=== PATIENT | female | born 1940 | race African-American/Black ===

== ENCOUNTER 2019-09-28 16:08 | Inpatient (IN) | payer MEDICARE, MEDICAID ==
[~2019-09-28] VITALS: Ht 152.4 cm; Wt 50.3 kg
[~2019-09-28 16:08] MED LIST: ALBUTEROL2.5 MG/3 M INH; ATIVAN2 MG ORAL; CHANTIX1 MG PO; COLACE250 MG ORAL; DIPHENHYDRAMINE25 MG ORAL; HYDROCHLOROTHIA25 MG PO; IBUPROFEN600 MG PO; IMDUR30 MG ORAL; IMDUR60 MG PO; INDOCIN25 MG/5 ML PO; IPRAT-ALBUT 0.5-3 ML IH; KEFLEX500 MG ORAL; LORAZEPAM2 MG/1 M4 ORAL; MEGACE ORA400 MG/10 ORAL; NEURONTIN300 MG ORAL; NEURONTIN300 MG PO; NORVASC5 MG PO; PATANOL1 DROP BOTH EYES; PRILOSEC OTC20 MG ORAL; PRILOSEC20 MG PO; PROCHLORPERAZINE5 MG ORAL; PROCHLORPERAZINE5 MG PO; SIMVASTATIN40 MG PO; SOMA350 MG PO; TAGAMET400 MG GT; TENORMIN50 MG PO; TRAMADOL HCL50 MG ORAL; VICODIN ORAL; ZANAFLEX4 M1 ORAL; ZAROXOLYN5 MG ORAL; ZOLOFT25 MG ORAL; ZOLOFT50 MG ORAL
[2019-09-28 16:10] VITALS: BP 102/60
--- NOTE | 2019-09-28 16:10 | NUR ---
ED Nurse Note: Patient arrived to ED by ambulance stating that she fell off of the 3rd step at her home due to thinking she was at the ground level. Patient states she fell and hit her face, head, and bilateral knees. Patient has visible, small lacerations on right upper and lower lips. Also, states she has a headache rating 10/10. Patient does have history of severe migraines and had MRI of head for migraines at [facility] this AM, prior to the fall. Patient AxO x 4, skin intact. Patient connected to the monitoring analyst, bed in lowest position. Blood sent to lab.
--- NOTE | 2019-09-28 16:46 | Emergency Room Report ---
History of Present Illness General Chief Complaint: Multiple Trauma/Fall Source: Patient, Medical Record Present Illness HPI Disclaimer: Please note that this report is being documented using DRAGON technology. This can lead to erroneous entry secondary to incorrect interpretation by the dictating instrument. HPI: 78-year-old female presents for evaluation after a fall. The patient was going down the stairs and missed the last 3 falling forwards onto her knees, right hip and hitting her head and face on the ground. There is no loss of consciousness. She denies any changes in her vision but is complaining of diffuse back pain, bilateral knee pain, right hip pain. Denies changes in her vision, blurred vision but notes some midface pain and swelling of the upper lip. She believes she bit through her upper lip. Bleeding was controlled at home by applying pressure. Does not recall last tetanus. She has a history of chronic back pain for which she takes Finley. Otherwise in her usual state of health and denies any new weakness, fatigue, fever, chills, chest pain, shortness of breath, abdominal pain, nausea, vomiting. PMH: Hypertension, hyperlipidemia, chronic back pain PSH: Reviewed Allergies: None listed Social Hx: Denies Allergies: Coded Allergies: No Known Allergies (Verified , 06/06/11) Patient History Last Menstrual Period: N/A Now: No Nursing Documentation-PMH Hx Cardiac Problems: Yes - EMPHYSEMA, Hx Hypertension: Yes Hx Asthma: No Hx COPD: Yes Hx Diabetes: No Hx Cancer: No Hx Gastrointestinal Problems: Yes Hx Dialysis: No Hx Neurological Problems: Yes - chronic back problems Hx Cerebrovascular Accident: No Hx Transient Ischemic Attacks: No Hx Dementia: No Hx Alzheimer's Disease: No Hx Parkinson's Disease: No Hx Encephalitis: No Hx Seizures: No Hx Epilepsy: No Hx Multiple Sclerosis: No Hx Cerebral Palsy: No Hx Amyotrophic Lat Sclerosis: No Hx Guillian-Vale Syndrome: No Hx Paralysis: No Hx Peripheral Neuropathy: No Hx Spinal Cord Injury: No Hx Head Trauma: No Hx Traumatic Brain Injury: No Hx Memory Loss: No Hx Concentration Difficulty: No Hx Speech Problem: No Hx Vertigo: No Hx Dizziness: No Hx Syncope: No Hx Headaches: No Hx Aphasia: No Hx Dysphasia: No Hx Numbness: No Hx Weakness: Yes - BILATERAL LOWER EXTRMITIES Hx Fatigue: No Hx Neurologic Surgery: No Hx Brain Shunt: No Review of Systems All Other Systems: negative except mentioned in HPI Physical Exam Vital Signs Date Time Temp Pulse Resp B/P (MAP) Pulse Ox O2 Delivery O2 Flow Rate FiO2 09/28/19 16:04 98.1 88 15 102/60 (74) 97 Room Air General: Awake and alert, no acute distress HEENT: Normocephalic, atraumatic. There are no scalp or face hematomas, lacerations or abrasions. . EOMI. PERRLA. No septal hematoma. Tenderness to palpation and edema over the upper lip. There is a 3 cm linear and very superficial laceration in the or mucosally of the upper lip. No midface instability. No malocclusion Neck: Supple, trachea midline. Arrives without cervical collar Chest Wall: No tenderness, no deformity, no crepitus CV: RRR. S1 and S2 normal. No murmur appreciated Resp: Normal work of breathing. No cough, wheezing or crackles appreciated Abd: Soft, nontender, nondistended Skin: Intact. No abrasions, laceration or rash over the exposed skin MSK: Normal tone and bulk. No obvious deformity. Moving all extremities. Tenderness palpation without deformity over the right hip. Range of motion is preserved. Bilateral pain over the patellas without effusion, edema, deformity. Patellas are in anatomic position. Able to flex and extend the knees. Neuro: Awake and alert. Mentating appropriately. Sensation is intact to light touch over the dermatomes of the upper and lower extremities Spine: There is tenderness in the midline without step-off or deformity in the cervical, thoracic and lumbosacral spine. Procedures Critical Care Time Critical Care Time Total critical care time: Approximately 31 minutes Due to a high probability of clinically significant, life threatening deterioration, the patient required the highest level of preparedness to intervene emergently and I personally spent this critical care time directly and personally managing the patient. This critical care time included obtaining a history, examining the patient, pulse oximetry, ordering and reviewing studies , ordering treatments, evaluating response to treatment and updating management plan as needed, frequent reassessment and discussion with other providers as well as arranging for ultimate disposition. This critical to care time was performed to assess and manage the high probability of life-threatening deterioration that could result in multiorgan failure. This critical care time is separate from the separately billable procedures and treating other patients. Medical Decision Making Diagnostic Impression: Primary Impression: Laceration of oral cavity Additional Impressions: Fall (on) (from) other stairs and steps, initial encounter Hypokalemia ER Course 78-year-old female presents for evaluation after a fall. She is not on anticoagulants but did suffer a head injury without loss of consciousness and appears to have a laceration in the oral mucosa. Will update tetanus, she will require CT scan of the head, face, cervical, thoracic and lumbosacral spine as well as x-rays of the hip and pelvis and bilateral knees. Will check screening labs as well and update tetanus. She is mentating appropriately and has no focal findings on exam. Laboratory Tests Test 09/28/19 16:55 White Blood Count 5.8 K/UL (4.8-10.8) Red Blood Count 4.07 M/UL (4.20-5.40) L Hemoglobin 12.9 G/DL (12.0-16.0) Hematocrit 36.3 % (37.0-47.0) L Mean Corpuscular Volume 89 FL (80-99) Mean Corpuscular Hemoglobin 31.6 PG (27.0-31.0) H Mean Corpuscular Hemoglobin Concent 35.4 G/DL (32.0-36.0) Red Cell Distribution Width 12.6 % (11.6-14.8) Platelet Count 229 K/UL (150-450) Mean Platelet Volume 6.0 FL (6.5-10.1) L Neutrophils (%) (Auto) 42.9 % (45.0-75.0) L Lymphocytes (%) (Auto) 37.1 % (20.0-45.0) Monocytes (%) (Auto) 14.4 % (1.0-10.0) H Eosinophils (%) (Auto) 3.8 % (0.0-3.0) H Basophils (%) (Auto) 1.8 % (0.0-2.0) Prothrombin Time 10.1 SEC (9.30-11.50) Prothrombin Time INR 0.9 (0.9-1.1) Sodium Level 133 MMOL/L (136-145) L Potassium Level 2.2 MMOL/L (3.5-5.1) *L Chloride Level 97 MMOL/L (98-107) L Carbon Dioxide Level 33 MMOL/L (21-32) H Anion Gap 5 mmol/L (5-15) Blood Urea Nitrogen 19 mg/dL (7-18) H Creatinine 1.1 MG/DL (0.55-1.30) Estimate Glomerular Filtration Rate mL/min (>60) Glucose Level 85 MG/DL (74-106) Calcium Level 8.9 MG/DL (8.5-10.1) EKG Diagnostic Results EKG Time: 18:02 Rate: normal Rhythm: NSR ST Segments: no acute changes Other Impression Sinus rhythm, normal axis, first-degree AV block with a OH interval [address] segment changes. Rhythm Strip Diag. Results Rhythm Strip Time: 18:02 EP Interpretation: yes Rate: 70s Rhythm: NSR, no PVC's, no ectopy Other X-Ray Diagnostic Results Other X-Ray Diagnostic Results #1: X-Ray ordered: Right hip and pelvis # of Views/Limited Vs Complete: Complete Indication: Pain EP Interpretation: Yes Interpretation: no dislocation, no soft tissue swelling, no fractures Impression: No acute disease Electronically Signed by: Electronically signed by Dr. Ras Smiley Other X-Ray Diagnostic Results #2: X-Ray ordered: Right knee # of Views/Limited Vs Complete: Complete Indication: Pain EP Interpretation: Yes Interpretation: no dislocation, no soft tissue swelling, no fractures Impression: No acute disease Electronically Signed by: Electronically signed by Dr. Ras Smiley Other X-Ray Diagnostic Results #3: X-Ray ordered: Left knee # of Views/Limited Vs Complete: Complete Indication: Pain EP Interpretation: Yes Interpretation: no dislocation, no soft tissue swelling, no fractures Impression: No acute disease Electronically Signed by: Electronically signed by Dr. Ras Smiley CT/MRI/US Diagnostic Results CT/MRI/US Diagnostic Results : Impression Final Report EXAM: CT Head Without Intravenous Contrast CLINICAL HISTORY: Injury TECHNIQUE: Axial computed tomography images of the head/brain without intravenous contrast. CTDI is 60 mGy and DLP is 1274.1 mGy-cm. One or more of the following dose reduction techniques were used: automated exposure control, adjustment of the mA and/or kV according to patient size, use of iterative reconstruction technique. COMPARISON: 10/11/12 FINDINGS: Brain: No acute intracranial hemorrhage, large hypodensity, or significant mass effect. Nonspecific areas of hypoattenuation in the periventricular white matter likely represent the sequela of chronic small vessel ischemic disease. Ventricles: Ventricular and sulcal prominence commensurate with the patient's age. Bones/joints: No acute abnormality. Soft tissues: No significant abnormality. Sinuses: No significant abnormality. Mastoid air cells: No significant abnormality. IMPRESSION: No acute intracranial hemorrhage or calvarial fracture. Radiologist: Elvia Parr MD Electronically Signed: 09/28/19 17:23 Study ready at 17:19 and initial results transmitted at 17:23 Final Report EXAM: CT Maxillofacial Without Intravenous Contrast CLINICAL HISTORY: INJ TECHNIQUE: Axial computed tomography images of the face without intravenous contrast. CTDI is 25.1 mGy and DLP is 500 mGy-cm. One or more of the following dose reduction techniques were used: automated exposure control, adjustment of the mA and/or kV according to patient size, use of iterative reconstruction technique. COMPARISON: 08/29/2013 FINDINGS: Artifacts: Motion. Bones/joints: Stable subcentimeter sclerotic lesion in the right ethmoid sinuses , likely an osteoma. Soft tissues: No significant abnormality. Orbits: No significant abnormality. Sinuses: Mild mucosal thickening in the paranasal sinuses. No air-fluid levels. Dental: Edentulous. IMPRESSION: No acute facial fractures. Radiologist: Elvia Parr MD Electronically Signed: 09/28/19 17:26 Study ready at 17:19 and initial results transmitted at 17:26 Final Report EXAM: CT Cervical Spine Without Intravenous Contrast CLINICAL HISTORY: Injury TECHNIQUE: Axial computed tomography images of the cervical spine without intravenous contrast. CTDI is 4.4 mGy and DLP is 128 mGy-cm. One or more of the following dose reduction techniques were used: automated exposure control, adjustment of the mA and/or kV according to patient size, use of iterative reconstruction technique. COMPARISON: No relevant prior studies available. FINDINGS: Vertebrae: No acute fracture or malalignment. Straightening of the normal cervical lordosis. Discs/spinal canal/neural foramina: Disc height loss, osteophytes, uncovertebral spurs, and facet arthropathy. Multilevel foraminal narrowing. No significant osseous spinal stenosis. Soft tissues: No significant abnormality. IMPRESSION: No acute fracture or malalignment. Radiologist: Elvia Parr MD Electronically Signed: 09/28/19 18:04 Study ready at 18:03 and initial results transmitted at 18:04 Final Report EXAM: CT Thoracic Spine Without Intravenous Contrast CLINICAL HISTORY: Injury TECHNIQUE: Axial computed tomography images of the thoracic spine without intravenous contrast. CTDI is 18.1 mGy and DLP is 721.9 mGy-cm. One or more of the following dose reduction techniques were used: automated exposure control, adjustment of the mA and/or kV according to patient size, use of iterative reconstruction technique. COMPARISON: No relevant prior studies available. FINDINGS: Vertebrae: No acute fracture or malalignment. Chronic compression of the superior endplate of L1. Discs/spinal canal/neural foramina: Mild degenerative changes. No significant osseous spinal stenosis. Soft tissues: No significant abnormality. Vasculature: Aortic atherosclerosis. Lungs: Mild bilateral dependent densities are favored to represent atelectasis. IMPRESSION: No acute fracture or malalignment. Radiologist: Elvia Parr MD Electronically Signed: 09/28/19 17:50 Study ready at 17:26 and initial results transmitted at 17:50 Final Report EXAM: CT Lumbar Spine Without Intravenous Contrast CLINICAL HISTORY: INJ TECHNIQUE: Axial computed tomography images of the lumbar spine without intravenous contrast. CTDI is 16.7 mGy and DLP is 551.6 mGy-cm. One or more of the following dose reduction techniques were used: automated exposure control, adjustment of the mA and/or kV according to patient size, use of iterative reconstruction technique. COMPARISON: 04/07/2014 FINDINGS: Vertebrae: No acute fracture or malalignment. Chronic compression of the superior endplate of L1. Bilateral L5 pars defects. Discs/spinal canal/neural foramina: Degenerative changes worst at L2-L3 and L5- S1. No significant osseous spinal stenosis. Soft tissues: No significant abnormality. Vasculature: Aortic atherosclerosis. Gallbladder and bile ducts: Gallbladder is absent. Kidneys and ureters: Small hypoattenuating left renal lesions, likely cysts. Stomach and bowel: Postsurgical changes are present in the bowel in the left pelvis. IMPRESSION: No acute fracture or malalignment. Radiologist: Elvia Parr MD Electronically Signed: 09/28/19 18:10 Study ready at 17:52 and initial results transmitted at 18:10 Reevaluation Time: 18:28 Last Vital Signs Date Time Temp Pulse Resp B/P (MAP) Pulse Ox O2 Delivery O2 Flow Rate FiO2 09/28/19 16:10 98.1 78 15 102/60 97 Room Air Reevaluation Impression No evidence of acute fracture on CT scans of the head, face, cervical, thoracic or lumbosacral spine. X-rays do not appear traumatic either no obvious dislocation or fracture. Labs show a critically low potassium of 2.2 with normal renal function. The patient will have IV and oral potassium repletion started on IV fluids. She will require admission for further electrolyte repletion. She will be admitted to panel physician on telemetry. Disposition: ADMITTED INPATIENT Condition: Serious Ras Smiley MD Sep 28, 2019 16:45
[2019-09-28 17:18] LABS: ANION GAP 5 mmol/L (5-15); BLOOD UREA NITROGEN 19 mg/dL (7-18); CALCIUM 8.9 MG/DL (8.5-10.1); CARBON DIOXIDE 33 MMOL/L (21-32); CHLORIDE 97 MMOL/L (98-107); CREATININE 1.1 MG/DL (0.55-1.30); SODIUM 133 MMOL/L (136-145)
[2019-09-28 17:22] LABS: BASOPHILS % (AUTO) 1.8 % (0.0-2.0); EOSINOPHILS % (AUTO) 3.8 % (0.0-3.0); HEMATOCRIT 36.3 % (37.0-47.0); HEMOGLOBIN 12.9 G/DL (12.0-16.0); LYMPHOCYTES % (AUTO) 37.1 % (20.0-45.0); MEAN CORPUSCULAR VOLUME 89 FL (80-99); MONOCYTES % (AUTO) 14.4 % (1.0-10.0); NEUTROPHILS % (AUTO) 42.9 % (45.0-75.0); PLATELET COUNT 229 K/UL (150-450); RED BLOOD COUNT 4.07 M/UL (4.20-5.40); RED CELL DISTRIBUTION WIDTH 12.6 % (11.6-14.8); WHITE BLOOD COUNT 5.8 K/UL (4.8-10.8)
--- NOTE | 2019-09-28 17:23 | Diagnostic Imaging Report ---
EXAM: CT Head Without Intravenous Contrast CLINICAL HISTORY: Injury TECHNIQUE: Axial computed tomography images of the head brain without intravenous contrast. CTDI is 60 mGy and DLP is 1274.1 mGy-cm. One or more of the following dose reduction techniques were used: automated exposure control, adjustment of the mA and or kV according to patient size, use of iterative reconstruction technique. COMPARISON: 10 11 12 FINDINGS: Brain: No acute intracranial hemorrhage, large hypodensity, or significant mass effect. Nonspecific areas of hypoattenuation in the periventricular white matter likely represent the sequela of chronic small vessel ischemic disease. Ventricles: Ventricular and sulcal prominence commensurate with the patient's age. Bones joints: No acute abnormality. Soft tissues: No significant abnormality. Sinuses: No significant abnormality. Mastoid air cells: No significant abnormality. IMPRESSION: No acute intracranial hemorrhage or calvarial fracture.
[2019-09-28 17:24] LABS: POTASSIUM 2.2 MMOL/L (3.5-5.1)
--- NOTE | 2019-09-28 17:27 | Diagnostic Imaging Report ---
EXAM: CT Maxillofacial Without Intravenous Contrast CLINICAL HISTORY: INJ TECHNIQUE: Axial computed tomography images of the face without intravenous contrast. CTDI is 25.1 mGy and DLP is 500 mGy-cm. One or more of the following dose reduction techniques were used: automated exposure control, adjustment of the mA and or kV according to patient size, use of iterative reconstruction technique. COMPARISON: 08 29 2013 FINDINGS: Artifacts: Motion. Bones joints: Stable subcentimeter sclerotic lesion in the right ethmoid sinuses, likely an osteoma. Soft tissues: No significant abnormality. Orbits: No significant abnormality. Sinuses: Mild mucosal thickening in the paranasal sinuses. No air- fluid levels. Dental: Edentulous. IMPRESSION: No acute facial fractures.
--- NOTE | 2019-09-28 17:29 | NUR ---
ED Nurse Note: Xray at bedside.
[2019-09-28 17:31] LABS: INR 0.9 (0.9-1.1)
--- NOTE | 2019-09-28 17:51 | Diagnostic Imaging Report ---
EXAM: CT Thoracic Spine Without Intravenous Contrast CLINICAL HISTORY: Injury TECHNIQUE: Axial computed tomography images of the thoracic spine without intravenous contrast. CTDI is 18.1 mGy and DLP is 721.9 mGy-cm. One or more of the following dose reduction techniques were used: automated exposure control, adjustment of the mA and or kV according to patient size, use of iterative reconstruction technique. COMPARISON: No relevant prior studies available. FINDINGS: Vertebrae: No acute fracture or malalignment. Chronic compression of the superior endplate of L1. Discs spinal canal neural foramina: Mild degenerative changes. No significant osseous spinal stenosis. Soft tissues: No significant abnormality. Vasculature: Aortic atherosclerosis. Lungs: Mild bilateral dependent densities are favored to represent atelectasis. IMPRESSION: No acute fracture or malalignment.
[2019-09-28 18:01] VITALS: BP 113/68
--- NOTE | 2019-09-28 18:04 | Diagnostic Imaging Report ---
EXAM: XR Left Knee, 3 Views CLINICAL HISTORY: Injury TECHNIQUE: Three views of the left knee. COMPARISON: No relevant prior studies available. FINDINGS: Bones joints: No acute fracture or malalignment. Soft tissues: No significant abnormality. IMPRESSION: No acute fracture or malalignment.
--- NOTE | 2019-09-28 18:04 | Diagnostic Imaging Report ---
EXAM: XR Right Knee, 3 Views CLINICAL HISTORY: Injury TECHNIQUE: Three views of the right knee. COMPARISON: No relevant prior studies available. FINDINGS: Bones joints: No acute fracture or malalignment. Soft tissues: No significant abnormality. IMPRESSION: No acute fracture or malalignment.
--- NOTE | 2019-09-28 18:05 | Diagnostic Imaging Report ---
EXAM: CT Cervical Spine Without Intravenous Contrast CLINICAL HISTORY: Injury TECHNIQUE: Axial computed tomography images of the cervical spine without intravenous contrast. CTDI is 4.4 mGy and DLP is 128 mGy-cm. One or more of the following dose reduction techniques were used: automated exposure control, adjustment of the mA and or kV according to patient size, use of iterative reconstruction technique. COMPARISON: No relevant prior studies available. FINDINGS: Vertebrae: No acute fracture or malalignment. Straightening of the normal cervical lordosis. Discs spinal canal neural foramina: Disc height loss, osteophytes, uncovertebral spurs, and facet arthropathy. Multilevel foraminal narrowing. No significant osseous spinal stenosis. Soft tissues: No significant abnormality. IMPRESSION: No acute fracture or malalignment.
--- NOTE | 2019-09-28 18:06 | Diagnostic Imaging Report ---
EXAM: XR Right Hip With Pelvis When Performed, 2 or 3 Views CLINICAL HISTORY: Injury TECHNIQUE: Two or three views of the right hip with pelvis when performed. COMPARISON: No relevant prior studies available. FINDINGS: Bones joints: No acute fracture or dislocation. Soft tissues: No significant abnormality. Gastrointestinal tract: Moderate colonic stool. IMPRESSION: No acute fracture or dislocation.
--- NOTE | 2019-09-28 18:11 | Diagnostic Imaging Report ---
EXAM: CT Lumbar Spine Without Intravenous Contrast CLINICAL HISTORY: INJ TECHNIQUE: Axial computed tomography images of the lumbar spine without intravenous contrast. CTDI is 16.7 mGy and DLP is 551.6 mGy-cm. One or more of the following dose reduction techniques were used: automated exposure control, adjustment of the mA and or kV according to patient size, use of iterative reconstruction technique. COMPARISON: 04 07 2014 FINDINGS: Vertebrae: No acute fracture or malalignment. Chronic compression of the superior endplate of L1. Bilateral L5 pars defects. Discs spinal canal neural foramina: Degenerative changes worst at L2- L3 and L5-S1. No significant osseous spinal stenosis. Soft tissues: No significant abnormality. Vasculature: Aortic atherosclerosis. Gallbladder and bile ducts: Gallbladder is absent. Kidneys and ureters: Small hypoattenuating left renal lesions, likely cysts. Stomach and bowel: Postsurgical changes are present in the bowel in the left pelvis. IMPRESSION: No acute fracture or malalignment.
[2019-09-28] MEDS ORDERED: HYDROcodone/Acetamin 7.5/325 tab ORAL ONE (18:45)
--- NOTE | 2019-09-28 19:10 | NUR ---
HAND-OFF: Report given to Sydnie CARRANZA.
--- NOTE | 2019-09-28 19:15 | NUR ---
ED Nurse Note: Recieved report to resume care, pt in bed awake,and alert, conversing with friend at bedside, IV site is patent, potassium infused and completed, tolerated well, site intact and patent, pt assisted with bedpan use, skin clean and dry, will resume care as ordered and prepare for admission.
[2019-09-28 19:45] VITALS: BP 116/65
--- NOTE | 2019-09-28 20:20 | NUR ---
ED Nurse Note: PT HAS ROOM FOR ADMISISONMary Beth CALLED TO FLOOR NURSE DILLON NELSON, PT IN BED AWAKE AND ALERT, FRIEND AT BEDSIDE WITH HER, MED REC AND BELONGING LIST COMPLETED, PT DENIES CP OR ANY PAIN, PT IS BEING TAKEN TO UNIT VIA GURNEY AND ACLS PROTOCOLS, NAD NOTED DURING TRANSPORT.
[2019-09-28 20:43] LABS: PHOSPHORUS 2.3 MG/DL (2.5-4.9)
[2019-09-28 21:00] VITALS: BP 113/64
--- NOTE | 2019-09-28 21:00 | NUR ---
NURSE NOTES: 2100: Pt arrived from ER via gurney. Got report from Sydnie CARRANZA. Pt in stable condition. Denies any pain. Denies any n/v or SOB. Pt is fully alert and able to answer all of my questions. No s/s of distress or discomfort noted. VSS T:97 HR:78 R:18 BP:113/64 O2:100% on room air. No skin issues noted. Pt is still weak from the fall and is unable to stand on on own yet. Observed pt lip is cut from the fall. explosive ordnance technician placed on pt. Pt running NSR on the monitor. Pt resting in bed comfortably. Bed in low and locked position, call light within reach, bedside table within reach. Continue to monitor. Paged Dr. Loyd for orders. Order given and placed.
[2019-09-28] MEDS: D5NS w/KCl 40mEq 1000ml 1,000 ML IV SCH (23:58)
[2019-09-29] VITALS (7 sets, daily range): BP systolic 99–121; BP diastolic 58–66
[2019-09-29] MEDS ORDERED: Albuterol/Ipratropium 3ml neb HHN PRN ×3 (01:00→05:00)
[2019-09-29] MEDS ORDERED: Albuterol ud Inhalation HHN PRN (01:00)
[2019-09-29] MEDS ORDERED: Cephalexin 500mg cap ORAL SCH (01:30)
[2019-09-29] MEDS ORDERED: Morphine Sulfate 2mg/ml Inj(IV/IM USE ONLY) IVP PRN ×2 (03:30→03:36)
--- NOTE | 2019-09-29 07:00 | NUR ---
HAND-OFF: Report given to Estela CARRANZA.
--- NOTE | 2019-09-29 07:30 | NUR ---
NURSE NOTES: Dr. Loyd ordered DVT prophylasix as ambulation TID rather than Heparin or SCD. Will continue plan of care.
--- NOTE | 2019-09-29 07:30 | NUR ---
NURSE NOTES: Received report from DILLON Mcdonald. The patient is resting on the bed without acute distress or shortness of breath. The patient's bed in the lowest position, call light in reach, and fall and aspiration precaution reinforced. IV site intact and patent. Will continue plan of care.
[2019-09-29 07:37] LABS: BASOPHILS % (AUTO) 0.9 % (0.0-2.0); EOSINOPHILS % (AUTO) 6.4 % (0.0-3.0); HEMATOCRIT 34.3 % (37.0-47.0); HEMOGLOBIN 11.7 G/DL (12.0-16.0); LYMPHOCYTES % (AUTO) 38.9 % (20.0-45.0); MEAN CORPUSCULAR VOLUME 92 FL (80-99); MONOCYTES % (AUTO) 13.1 % (1.0-10.0); NEUTROPHILS % (AUTO) 40.7 % (45.0-75.0); PLATELET COUNT 205 K/UL (150-450); RED BLOOD COUNT 3.71 M/UL (4.20-5.40); WHITE BLOOD COUNT 5.8 K/UL (4.8-10.8)
--- NOTE | 2019-09-29 08:00 | NUR ---
NURSE NOTES: MOVIE ACTOR reported that the patient has low blood pressure. Checked the blood pressure again, and the blood pressure was 99/58. Nursing intervention taken. Will recheck blood pressure again. The patient denies of acute distress, shortness of breath, chest pain, or dizziness. Will continue plan of care.
[2019-09-29 08:01] LABS: ALANINE AMINOTRANSFERASE 19 U/L (12-78); ALBUMIN/GLOBULIN RATIO 0.8 (1.0-2.7); ALKALINE PHOSPHATASE 58 U/L (46-116); ANION GAP 8 mmol/L (5-15); ASPARTATE AMINO TRANSFERASE 19 U/L (15-37); BILIRUBIN,TOTAL 0.3 MG/DL (0.2-1.0); BLOOD UREA NITROGEN 12 mg/dL (7-18); CALCIUM 8.5 MG/DL (8.5-10.1); CARBON DIOXIDE 26 MMOL/L (21-32); CHLORIDE 109 MMOL/L (98-107); CREATININE 0.8 MG/DL (0.55-1.30); POTASSIUM 3.6 MMOL/L (3.5-5.1); SODIUM 143 MMOL/L (136-145)
[2019-09-29] MEDS: Imdur 30mg tab ORAL SCH (08:44)
[2019-09-29] MEDS: Cephalexin 500mg cap ORAL SCH ×4 (08:45→23:50)
[2019-09-29] MEDS: Sertraline 50mg tab ORAL SCH (08:46)
[2019-09-29] MEDS: traMADol 50mg tab ORAL PRN (08:47)
[2019-09-29] MEDS ORDERED: Docusate 250mg cap ORAL SCH (09:00)
--- NOTE | 2019-09-29 09:00 | NUR ---
NURSE NOTES: Rechecked the blood pressure. The patient's blood pressure got stabilized with nursing intervention. The patient's blood pressure is 119/66 with pulse of 79. Dr. Dewitt discontinued Potassium and started Magnesium 1gram x2 IVPB. Will administer medication as ordered. Will continue plan of care.
--- NOTE | 2019-09-29 11:49 | Consultation ---
Consult Note Consult Note asked to eval for management of low k Poor [facility] ER: Chief Complaint: Multiple Trauma/Fall HPI: 78-year-old female presents for evaluation after a fall. The patient was going down the stairs and missed the last 3 falling forwards onto her knees, right hip and hitting her head and face on the ground. There is no loss of consciousness. She denies any changes in her vision but is complaining of diffuse back pain, bilateral knee pain, right hip pain. Denies changes in her vision, blurred vision but notes some midface pain and swelling of the upper lip. She believes she bit through her upper lip. Bleeding was controlled at home by applying pressure. Does not recall last tetanus. She has a history of chronic back pain for which she takes [place]. Otherwise in her usual state of health and denies any new weakness, fatigue, fever, chills, chest pain, shortness of breath, abdominal pain, nausea, vomiting. PMH: Hypertension, hyperlipidemia, chronic back pain No Known Allergies (Verified , 06/06/11) Hx Cardiac Problems: Yes - EMPHYSEMA, Hx Hypertension: Yes Hx COPD: Yes Hx Gastrointestinal Problems: Yes Hx Neurological Problems: Yes - chronic back problems Hx Weakness: Yes - BILATERAL LOWER EXTRMITIES examined data reviewed Assessment/Plan HypoKalemia COPD HTN Fall- Laceration of Oral Cavity IV + Kcl Adjust BP meds Monitor lytes per orders Neo Dewitt MD Sep 29, 2019 11:49
[2019-09-29] MEDS ORDERED: Phospha 250 Neutral tab ORAL SCH (12:00)
--- NOTE | 2019-09-29 12:00 | NUR ---
NURSE NOTES: The patient is stable without acute distress or shortness of breath. Will continue plan of care.
[2019-09-29] MEDS: Docusate 100mg cap ORAL SCH ×2 (12:30→17:56)
[2019-09-29] MEDS: D5NS w/KCl 40mEq 1000ml 1,000 ML IV SCH (12:30)
--- NOTE | 2019-09-29 14:30 | History and Physical Report ---
DATE OF ADMISSION: 09/28/2019 DATE AND TIME SEEN: 09/29/2019 at 8 a.m. STUDENT OUTREACH COORDINATOR: Neo Dewitt M.D. CHIEF COMPLAINT: Fall, hypokalemia. BRIEF HISTORY: This is an 78-year-old female, who lives at home by himself. Apparently she says she missed a step, fell down, struck her face and chest, and not sure if she passed out. She came to [facility], diagnosed the above, admitted to medical floor for further treatment, and also found to be hypokalemic. Currently calm in bed. No complaint. No chest pain. No shortness of breath. No nausea, vomiting, or diarrhea. Slightly weak. PAST MEDICAL HISTORY: Includes asthma, weakness. PAST SURGICAL HISTORY: Hysterectomy. ALLERGIES: Denies. SOCIAL HISTORY: Positive smoking. No alcohol. No intravenous drug abuse. FAMILY HISTORY: Noncontributory. PHYSICAL EXAMINATION: GENERAL: Calm in bed, oriented x2, in no acute distress. Slight upper lip swelling from fall as per the patient. VITAL SIGNS: Temperature is 98 degrees, pulse 80, respirations 18, blood pressure 99/58. CARDIOVASCULAR: No murmur. LUNGS: Distant and clear. ABDOMEN: Bowel sound positive. Nontender. Nondistended. EXTREMITIES: No cyanosis or edema. NEUROLOGIC: The patient moves all extremities, slightly weak. LABORATORY AND DIAGNOSTIC DATA: Labs at this time show hemoglobin 11/34, otherwise CBC is normal. BMP show initial potassium 2.2, now it is corrected, phosphorus 2.0, albumin 3.0. INR is 0.9. MEDICATIONS: Include Ativan, Lipitor, Norvasc, Tenormin, Neurontin, Megace, Zoloft, Keflex, magnesium, albuterol. ASSESSMENT: Fall, hypokalemia, asthma, weakness, hypertension. PLAN: 1. Blood pressure and pain control. 2. Dietary followup. 3. PT/OT. 4. Check laboratories in the morning. 5. We will get ARU eval as well. Miguel Loyd D.O. DR: GIOVANNI JOB#: [id number] CC:
--- NOTE | 2019-09-29 18:00 | NUR ---
NURSE NOTES: The patient is stable without acute distress or shortness of breath. Will continue plan of care.
--- NOTE | 2019-09-29 19:29 | NUR ---
NURSE NOTES: Got report from Estela CARRANZA. Pt in stable condition. Denies any pain. No s/s of distress or discomfort noted. Pt resting in bed comfortably. Bed in low and locked position, call light within reach, bedside table within reach. Continue to monitor.
--- NOTE | 2019-09-29 19:30 | NUR ---
HAND-OFF: Report given to DILLON Mcdonald. The patient is resting on the bed without acute distress or shortness of breath. The patient's bed in the lowest position, call light in reach, and fall and aspiration precaution reinforced. IV site intact and patent. Endorsed plan of care.
[2019-09-29 20:15] LABS: APPEARANCE,URINE SLIGHTLY CLOUDY; BILIRUBIN, URINE NEGATIVE (NEGATIVE); COLOR,URINE AMBER; GLUCOSE, URINE (UA) NEGATIVE (NEGATIVE); KETONES,URINE NEGATIVE (NEGATIVE); LEUKOCYTE ESTERASE ,URINE 3+ (NEGATIVE); NITRITE,URINE NEGATIVE (NEGATIVE); PH,URINE 6.5 (4.5-8.0); PROTEIN,URINE NEGATIVE (NEGATIVE); UROBILINOGEN,URINE NORMAL MG/DL (0.0-1.0)
[2019-09-29] MEDS: LORazepam 1mg tab ORAL SCH (20:53)
[2019-09-29] MEDS: Metoprolol Tartrate 12.5mg TAB ORAL SCH (20:53)
[2019-09-29] MEDS ORDERED: Atorvastatin 20mg tab ORAL SCH (21:00)
[2019-09-30] VITALS: BP 123/64
[2019-09-30] MEDS: D5NS w/KCl 40mEq 1000ml 1,000 ML IV SCH ×2 (01:12→12:29)
[2019-09-30 04:00] VITALS: BP 119/60
[2019-09-30] MEDS: Cephalexin 500mg cap ORAL SCH ×3 (05:33→17:34)
--- NOTE | 2019-09-30 07:00 | NUR ---
HAND-OFF: Report given to Estela CARRANZA.
--- NOTE | 2019-09-30 07:30 | NUR ---
NURSE NOTES: Received report from DILLON Mcdonald. The patient is resting on the bed without acute distress or shortness of breath. The patient's bed in the lowest position, call light in reach, and fall and aspiration precaution reinforced. IV site intact and patent. The patient denies of pain at this time. Will continue plan of care.
[2019-09-30 08:00] VITALS: BP 114/57
[2019-09-30 08:24] LABS: BASOPHILS % (AUTO) 1.7 % (0.0-2.0); EOSINOPHILS % (AUTO) 7.1 % (0.0-3.0); HEMATOCRIT 32.4 % (37.0-47.0); HEMOGLOBIN 11.2 G/DL (12.0-16.0); LYMPHOCYTES % (AUTO) 41.1 % (20.0-45.0); MEAN CORPUSCULAR VOLUME 90 FL (80-99); MONOCYTES % (AUTO) 12.4 % (1.0-10.0); NEUTROPHILS % (AUTO) 37.7 % (45.0-75.0); PLATELET COUNT 199 K/UL (150-450); RED BLOOD COUNT 3.59 M/UL (4.20-5.40); RED CELL DISTRIBUTION WIDTH 12.8 % (11.6-14.8); WHITE BLOOD COUNT 5.9 K/UL (4.8-10.8)
[2019-09-30] MEDS: Imdur 30mg tab ORAL SCH (08:46)
[2019-09-30] MEDS: Docusate 100mg cap ORAL SCH ×3 (08:46→17:34)
[2019-09-30] MEDS: Aspirin Baby 81mg ORAL SCH (08:46)
[2019-09-30] MEDS: Metoprolol Tartrate 12.5mg TAB ORAL SCH ×2 (08:47→20:26)
[2019-09-30] MEDS: Sertraline 50mg tab ORAL SCH (08:47)
[2019-09-30 09:11] LABS: ALANINE AMINOTRANSFERASE 16 U/L (12-78); ALBUMIN 2.7 G/DL (3.4-5.0); ALBUMIN/GLOBULIN RATIO 0.8 (1.0-2.7); ALKALINE PHOSPHATASE 55 U/L (46-116); ANION GAP 10 mmol/L (5-15); ASPARTATE AMINO TRANSFERASE 15 U/L (15-37); BILIRUBIN,TOTAL 0.3 MG/DL (0.2-1.0); BLOOD UREA NITROGEN 8 mg/dL (7-18); CALCIUM 7.8 MG/DL (8.5-10.1); CARBON DIOXIDE 23 MMOL/L (21-32); CHLORIDE 110 MMOL/L (98-107); CHOLESTEROL 151 MG/DL (< 200); CREATINE KINASE 82 U/L (26-308); CREATININE 0.8 MG/DL (0.55-1.30); GAMMA GLUTAMYL TRANSPEPTIDASE 48 U/L (5-85); HDL CHOLESTEROL 27 MG/DL (40-60); PHOSPHORUS 2.4 MG/DL (2.5-4.9); POTASSIUM 3.5 MMOL/L (3.5-5.1); SODIUM 143 MMOL/L (136-145); TRIGLYCERIDES 119 MG/DL (30-150)
--- NOTE | 2019-09-30 09:35 | General Progress Note ---
Assessment/Plan Problem List: (1) Anemia ICD Codes: D64.9 - Anemia, unspecified SNOMED: 362215012 (2) Malnutrition ICD Codes: E46 - Unspecified protein-calorie malnutrition SNOMED: 89421251 (3) Hypokalemia ICD Codes: E87.6 - Hypokalemia SNOMED: 67160377 (4) Fall (on) (from) other stairs and steps, initial encounter ICD Codes: W10.8XXA - Fall (on) (from) other stairs and steps, initial encounter SNOMED: 157389741 Status: stable, progressing Assessment/Plan: pt diet neph f/u cbc bmp am aru eval Subjective Constitutional: Reports: weakness Allergies: Coded Allergies: No Known Allergies (Verified , 06/06/11) All Systems: reviewed and negative except above Subjective walking w pt Objective Last 24 Hour Vital Signs Date Time Temp Pulse Resp B/P (MAP) Pulse Ox O2 Delivery O2 Flow Rate FiO2 09/30/19 08:47 87 114/57 09/30/19 08:46 114/57 09/30/19 08:00 97.7 87 18 114/57 (76) 96 09/30/19 07:48 90 18 99 Room Air 21 09/30/19 04:00 68 09/30/19 04:00 97.6 80 18 119/60 (79) 95 09/30/19 00:00 74 09/30/19 00:00 98.0 79 18 123/64 (83) 96 09/29/19 21:00 Room Air 09/29/19 20:53 82 117/61 09/29/19 20:00 97.5 82 18 117/61 (79) 97 09/29/19 20:00 79 09/29/19 16:00 91 09/29/19 16:00 97.2 84 18 119/58 (78) 95 09/29/19 12:00 82 09/29/19 12:00 98.3 59 18 121/63 (82) 98 09/29/19 11:31 80 20 98 Room Air 21 Intake and Output 09/29/19 09/30/19 19:00 07:00 Intake Total 500 ml Balance 500 ml Intake Oral 500 ml # Voids 2 3 Laboratory Tests 09/29/19 19:13: Urine Color Aide, Urine Appearance Slightly cloudy, Urine pH 6.5, Urine Specific [place] 1.010, Urine Protein Negative, Urine Glucose (UA) Negative, Urine Ketones Negative, Urine Blood Negative, Urine Nitrite Negative, Urine Bilirubin Negative, Urine Ictotest Negative, Urine Urobilinogen Normal, Urine Leukocyte Esterase 3+H, Urine RBC 0-2, Urine WBC 30-40H, Urine Squamous Epithelial Cells ManyH, Urine Bacteria ManyH 09/30/19 06:14: White Blood Count 5.9, Red Blood Count 3.59L, Hemoglobin 11.2L, Hematocrit 32.4L , Mean Corpuscular Volume 90, Mean Corpuscular Hemoglobin 31.1H, Mean Corpuscular Hemoglobin Concent 34.5, Red Cell Distribution Width 12.8, Platelet Count 199, Mean Platelet Volume 6.2L, Neutrophils (%) (Auto) 37.7L, Lymphocytes (%) (Auto) 41.1, Monocytes (%) (Auto) 12.4H, Eosinophils (%) (Auto) 7.1H, Basophils (%) (Auto) 1.7, Sodium Level 143, Potassium Level 3.5, Chloride Level 110H, Carbon Dioxide Level 23, Anion Gap 10, Blood Urea Nitrogen 8, Creatinine 0.8, Estimat Glomerular Filtration Rate , Glucose Level 80, Hemoglobin A1c 5.2, Uric Acid 3.2, Calcium Level 7.8L, Phosphorus Level 2.4L, Magnesium Level 1.7L, Total Bilirubin 0.3, Gamma Glutamyl Transpeptidase 48, Aspartate Amino Transf ( AST/SGOT) 15, Alanine Aminotransferase (ALT/SGPT) 16, Alkaline Phosphatase 55, Total Creatine Kinase 82, C-Reactive Protein, Quantitative 2.7H, Pro-B-Type Natriuretic Peptide 342H, Total Protein 6.3L, Albumin 2.7L, Globulin 3.6, Albumin/Globulin Ratio 0.8L, Triglycerides Level 119, Cholesterol Level 151, LDL Cholesterol 97, HDL Cholesterol 27L, Cholesterol/HDL Ratio 5.6H, Thyroid Stimulating Hormone (TSH) 1.937, Free Thyroxine 0.76, Free Triiodothyronine 2.0L Height (Feet): 5 Height (Inches): 0.00 Weight (Pounds): 111 General Appearance: lethargic EENT: normal ENT inspection Neck: normal alignment Cardiovascular: normal peripheral pulses, normal rate, regular rhythm Respiratory/Chest: chest wall non-tender, lungs clear, normal breath sounds Abdomen: normal bowel sounds, non tender, soft Extremities: normal inspection Edema: no edema noted Arm (L), no edema noted Arm (R), no edema noted Leg (L), no edema noted Leg (R), no edema noted Pedal (L), no edema noted Pedal (R), no edema noted Generalized Neurologic: responsive, motor weakness Skin: normal pigmentation, warm/dry Migule Loyd DO Sep 30, 2019 09:35
[2019-09-30 12:00] VITALS: BP 123/58
[2019-09-30] MEDS ORDERED: Phospha 250 Neutral tab ORAL SCH (12:15)
--- NOTE | 2019-09-30 13:00 | NUR ---
NURSE NOTES: The patient is stable without acute distress or shortness of breath. Will continue plan of care.
--- NOTE | 2019-09-30 14:26 | NUR ---
P.T Note: P.T evaluation completed and tx initiated. Please refer to P.T evaluation for current functional status. Pt is alert, O x 4, pleasant and cooperative. Pt reports c/o generalized weakness and pain particularly the R thigh and B knees. Pt currently requires MIN A x 1for bed mobilities and transfers. Pt able to ambulate and tolerate distance of 30 ft with FWW , MIN A X 1 then c/o fatigue and dizziness post ambulation which subsided over time. Vitals taken and were stable. Skilled P.T service is warranted to improve her strength, endurance and balance to increase her mobility independence and safety during stay. Recommend SNF for short term rehab intervention VS home P.T at [facility].
--- NOTE | 2019-09-30 14:53 | Nephrology Progress Note ---
Assessment/Plan Problem List: (1) Hypokalemia (2) HTN (hypertension) (3) Anemia Assessment HypoKalemia COPD HTN Fall- Laceration of Oral Cavity Plan Kcl as needed Phos and Mag supplement as needed Adjust BP meds Monitor lytes per orders Subjective ROS Limited/Unobtainable: No Constitutional: Reports: malaise Objective Objective Last 24 Hour Vital Signs Date Time Temp Pulse Resp B/P (MAP) Pulse Ox O2 Delivery O2 Flow Rate FiO2 09/30/19 12:00 98.1 81 18 123/58 (79) 96 09/30/19 12:00 69 09/30/19 09:00 Room Air 09/30/19 08:47 87 114/57 09/30/19 08:46 114/57 09/30/19 08:00 97.7 87 18 114/57 (76) 96 09/30/19 08:00 88 09/30/19 07:48 90 18 99 Room Air 21 09/30/19 04:00 68 09/30/19 04:00 97.6 80 18 119/60 (79) 95 09/30/19 00:00 74 09/30/19 00:00 98.0 79 18 123/64 (83) 96 09/29/19 21:00 Room Air 09/29/19 20:53 82 117/61 09/29/19 20:00 97.5 82 18 117/61 (79) 97 09/29/19 20:00 79 09/29/19 16:00 91 09/29/19 16:00 97.2 84 18 119/58 (78) 95 Intake and Output 09/29/19 09/30/19 18:59 06:59 Intake Total 500 ml Balance 500 ml Intake Oral 500 ml # Voids 2 3 Laboratory Tests 09/29/19 19:13: Urine Color Aide, Urine Appearance Slightly cloudy, Urine pH 6.5, Urine Specific [place] 1.010, Urine Protein Negative, Urine Glucose (UA) Negative, Urine Ketones Negative, Urine Blood Negative, Urine Nitrite Negative, Urine Bilirubin Negative, Urine Ictotest Negative, Urine Urobilinogen Normal, Urine Leukocyte Esterase 3+H, Urine RBC 0-2, Urine WBC 30-40H, Urine Squamous Epithelial Cells ManyH, Urine Bacteria ManyH 09/30/19 06:14: White Blood Count 5.9, Red Blood Count 3.59L, Hemoglobin 11.2L, Hematocrit 32.4L , Mean Corpuscular Volume 90, Mean Corpuscular Hemoglobin 31.1H, Mean Corpuscular Hemoglobin Concent 34.5, Red Cell Distribution Width 12.8, Platelet Count 199, Mean Platelet Volume 6.2L, Neutrophils (%) (Auto) 37.7L, Lymphocytes (%) (Auto) 41.1, Monocytes (%) (Auto) 12.4H, Eosinophils (%) (Auto) 7.1H, Basophils (%) (Auto) 1.7, Sodium Level 143, Potassium Level 3.5, Chloride Level 110H, Carbon Dioxide Level 23, Anion Gap 10, Blood Urea Nitrogen 8, Creatinine 0.8, Estimat Glomerular Filtration Rate , Glucose Level 80, Hemoglobin A1c 5.2, Uric Acid 3.2, Calcium Level 7.8L, Phosphorus Level 2.4L, Magnesium Level 1.7L, Total Bilirubin 0.3, Gamma Glutamyl Transpeptidase 48, Aspartate Amino Transf ( AST/SGOT) 15, Alanine Aminotransferase (ALT/SGPT) 16, Alkaline Phosphatase 55, Total Creatine Kinase 82, C-Reactive Protein, Quantitative 2.7H, Pro-B-Type Natriuretic Peptide 342H, Total Protein 6.3L, Albumin 2.7L, Globulin 3.6, Albumin/Globulin Ratio 0.8L, Triglycerides Level 119, Cholesterol Level 151, LDL Cholesterol 97, HDL Cholesterol 27L, Cholesterol/HDL Ratio 5.6H, Thyroid Stimulating Hormone (TSH) 1.937, Free Thyroxine 0.76, Free Triiodothyronine 2.0L Height (Feet): 5 Height (Inches): 0.00 Weight (Pounds): 111 General Appearance: no apparent distress Cardiovascular: normal rate Respiratory/Chest: lungs clear Abdomen: soft Objective no change Neo Dewitt MD Sep 30, 2019 14:53
[2019-09-30 16:00] VITALS: BP 116/68
--- NOTE | 2019-09-30 16:30 | NUR ---
NURSE NOTES: The patient is stable without acute distress or shortness of breath. Will continue plan of care.
--- NOTE | 2019-09-30 16:44 | NUR ---
DISCHARGE PLANNING Discharge order noted Patient has been referred to [facility] Await Acceptance
--- NOTE | 2019-09-30 19:20 | NUR ---
NURSE NOTES: Pt received from DILLON Palmer alert and oriented x4 with no acute s/s of distress noted. IV site asymptomatic and patent on R fa 22g, saline lock. Bed in lowest position. Bed alarm on. Call light and belongings within reach.
[2019-09-30 20:00] VITALS: BP 114/62
[2019-09-30] MEDS: LORazepam 1mg tab ORAL SCH (20:27)
[2019-10-01] VITALS: BP 119/65
[2019-10-01] MEDS: Cephalexin 500mg cap ORAL SCH ×4 (00:13→17:12)
[2019-10-01 04:00] VITALS: BP 117/66
[2019-10-01 06:26] LABS: BASOPHILS % (AUTO) 2.2 % (0.0-2.0); EOSINOPHILS % (AUTO) 7.4 % (0.0-3.0); HEMATOCRIT 31.2 % (37.0-47.0); HEMOGLOBIN 10.9 G/DL (12.0-16.0); MEAN CORPUSCULAR VOLUME 90 FL (80-99); MONOCYTES % (AUTO) 12.9 % (1.0-10.0); NEUTROPHILS % (AUTO) 40.5 % (45.0-75.0); PLATELET COUNT 199 K/UL (150-450); RED BLOOD COUNT 3.46 M/UL (4.20-5.40); RED CELL DISTRIBUTION WIDTH 12.5 % (11.6-14.8); WHITE BLOOD COUNT 6.4 K/UL (4.8-10.8)
[2019-10-01 06:51] LABS: ALANINE AMINOTRANSFERASE 17 U/L (12-78); ALBUMIN 2.7 G/DL (3.4-5.0); ALBUMIN/GLOBULIN RATIO 0.7 (1.0-2.7); ALKALINE PHOSPHATASE 60 U/L (46-116); ANION GAP 9 mmol/L (5-15); ASPARTATE AMINO TRANSFERASE 16 U/L (15-37); BILIRUBIN,TOTAL 0.2 MG/DL (0.2-1.0); BLOOD UREA NITROGEN 10 mg/dL (7-18); CALCIUM 7.8 MG/DL (8.5-10.1); CARBON DIOXIDE 25 MMOL/L (21-32); CHLORIDE 109 MMOL/L (98-107); CREATININE 0.9 MG/DL (0.55-1.30); PHOSPHORUS 2.6 MG/DL (2.5-4.9); POTASSIUM 3.5 MMOL/L (3.5-5.1); SODIUM 143 MMOL/L (136-145)
--- NOTE | 2019-10-01 07:15 | NUR ---
NURSE NOTES: Received patient in bed. awake and alert. no complain of pain or discomfort at this time. fall precautions in place. bed locked to lowest position. side rails X2 up for safety. call fuller within patients reached. patient instructed to call for help/assistance whenever she needed to use the bathroom. will follow.
--- NOTE | 2019-10-01 07:20 | NUR ---
HAND-OFF: Report given to DILLON Olivarez.
[2019-10-01 08:00] VITALS: BP 115/64
[2019-10-01] MEDS: Imdur 30mg tab ORAL SCH (08:39)
[2019-10-01] MEDS: Metoprolol Tartrate 12.5mg TAB ORAL SCH (08:39)
[2019-10-01] MEDS: Aspirin Baby 81mg ORAL SCH (08:40)
[2019-10-01] MEDS: Docusate 100mg cap ORAL SCH ×3 (08:40→17:12)
[2019-10-01] MEDS: Sertraline 50mg tab ORAL SCH (08:40)
--- NOTE | 2019-10-01 11:17 | CDS Physician Query ---
Clarification is required for compliance, coding accuracy, and to reflect severity of illness for this patient. Dear Dr. Miguel Loyd Date:10/01/2019 CDS name: Domitila Marr Clinical Documentation States: HNP: 78-year-old female, who lives at home by himself. Apparently she says she missed a step, fell down, struck her face and chest...ASSESSMENT: Fall, hypokalemia, asthma, weakness, hypertension. 09/30 note: Malnutrition...Unspecified protein-calorie malnutrition BMI: 21.7 Albumin: 2.7 In order to accurately code this and to reflect the appropriate severity of illness, please clarify diagnosis. [] Mild Malnutrition [] Moderate Malnutrition [] Severe Malnutrition [] Unknown degree [] Other: [] Clinically Undetermined Present on Admission: [] Yes [] No [] Clinically Undetermined Physician signature Date Please also document in your Progress Notes and/or Discharge Summary and indicate if the condition was present on admission. READ
[2019-10-01 12:00] VITALS: BP 102/56
--- NOTE | 2019-10-01 12:07 | Nephrology Progress Note ---
Assessment/Plan Problem List: (1) Hypokalemia (2) HTN (hypertension) (3) Anemia Assessment HypoKalemia COPD HTN Fall- Laceration of Oral Cavity Plan Kcl as needed Phos and Mag supplement as needed Adjust BP meds Monitor lytes per orders Subjective ROS Limited/Unobtainable: No Constitutional: Reports: malaise Objective Objective Last 24 Hour Vital Signs Date Time Temp Pulse Resp B/P (MAP) Pulse Ox O2 Delivery O2 Flow Rate FiO2 10/01/19 08:39 90 115/64 10/01/19 08:39 115/64 10/01/19 08:00 98.2 90 18 115/64 (81) 98 10/01/19 08:00 74 10/01/19 04:00 83 10/01/19 04:00 98.0 82 18 117/66 (83) 98 10/01/19 00:00 75 10/01/19 00:00 98.2 81 18 119/65 (83) 97 09/30/19 21:50 77 16 99 Room Air 21 09/30/19 21:00 Room Air 09/30/19 20:26 84 117/65 09/30/19 20:00 98.4 83 18 114/62 (79) 96 09/30/19 20:00 81 09/30/19 16:00 79 09/30/19 16:00 96.8 89 18 116/68 (84) 100 Intake and Output 09/30/19 10/01/19 19:00 07:00 Intake Total 740 ml 200 ml Output Total 800 ml 400 ml Balance -60 ml -200 ml Intake Oral 740 ml 200 ml Output Urine Total 800 ml 400 ml # Voids 1 1 # Bowel Movements 1 2 Laboratory Tests 10/01/19 05:00: White Blood Count 6.4, Red Blood Count 3.46L, Hemoglobin 10.9L, Hematocrit 31.2L , Mean Corpuscular Volume 90, Mean Corpuscular Hemoglobin 31.4H, Mean Corpuscular Hemoglobin Concent 34.9, Red Cell Distribution Width 12.5, Platelet Count 199, Mean Platelet Volume 5.8L, Neutrophils (%) (Auto) 40.5L, Lymphocytes (%) (Auto) 37.0, Monocytes (%) (Auto) 12.9H, Eosinophils (%) (Auto) 7.4H, Basophils (%) (Auto) 2.2H, Sodium Level 143, Potassium Level 3.5, Chloride Level 109H, Carbon Dioxide Level 25, Anion Gap 9, Blood Urea Nitrogen 10, Creatinine 0.9, Estimat Glomerular Filtration Rate , Glucose Level 89, Uric Acid 3.8, Calcium Level 7.8L, Phosphorus Level 2.6, Magnesium Level 1.8, Total Bilirubin 0.2, Aspartate Amino Transf (AST/SGOT) 16, Alanine Aminotransferase ( ALT/SGPT) 17, Alkaline Phosphatase 60, Total Protein 6.4, Albumin 2.7L, Globulin 3.7, Albumin/Globulin Ratio 0.7L Height (Feet): 5 Height (Inches): 0.00 Weight (Pounds): 111 General Appearance: no apparent distress Objective no change Neo Dewitt MD Oct 01, 2019 12:07
--- NOTE | 2019-10-01 12:57 | NUR ---
CARE PROGRAM DIRECTOR NOTES 78 YO FEMALE BIBA FROM HOME TO ER CC MISSED STEP AND FELL ON FACE SI: HYPOKALEMIA T. 98.1 HR 88 RR 15 B/P 106/60 K.2.2 BUN 19 ALL X-RAY NEGATIVE IS: KCL IV KCL PO ADMITTED TO TELE8 TELE STATUS DCP HOME
--- NOTE | 2019-10-01 14:28 | General Progress Note ---
Assessment/Plan Problem List: (1) Anemia ICD Codes: D64.9 - Anemia, unspecified SNOMED: 723909303 (2) Malnutrition ICD Codes: E46 - Unspecified protein-calorie malnutrition SNOMED: 23805574 (3) Hypokalemia ICD Codes: E87.6 - Hypokalemia SNOMED: 29701841 (4) Fall (on) (from) other stairs and steps, initial encounter ICD Codes: W10.8XXA - Fall (on) (from) other stairs and steps, initial encounter SNOMED: 988685783 Status: stable, progressing Assessment/Plan: pt diet neph f/u cbc bmp am snf eval Subjective Constitutional: Reports: weakness Allergies: Coded Allergies: No Known Allergies (Verified , 06/06/11) All Systems: reviewed and negative except above Subjective sleepy calm Objective Last 24 Hour Vital Signs Date Time Temp Pulse Resp B/P (MAP) Pulse Ox O2 Delivery O2 Flow Rate FiO2 10/01/19 12:00 98.3 75 18 102/56 (71) 98 10/01/19 09:00 Room Air 10/01/19 08:39 90 115/64 10/01/19 08:39 115/64 10/01/19 08:00 98.2 90 18 115/64 (81) 98 10/01/19 08:00 74 10/01/19 04:00 83 10/01/19 04:00 98.0 82 18 117/66 (83) 98 10/01/19 00:00 75 10/01/19 00:00 98.2 81 18 119/65 (83) 97 09/30/19 21:50 77 16 99 Room Air 21 09/30/19 21:00 Room Air 09/30/19 20:26 84 117/65 09/30/19 20:00 98.4 83 18 114/62 (79) 96 09/30/19 20:00 81 09/30/19 16:00 79 09/30/19 16:00 96.8 89 18 116/68 (84) 100 Intake and Output 09/30/19 10/01/19 19:00 07:00 Intake Total 740 ml 200 ml Output Total 800 ml 400 ml Balance -60 ml -200 ml Intake Oral 740 ml 200 ml Output Urine Total 800 ml 400 ml # Voids 1 1 # Bowel Movements 1 2 Laboratory Tests 10/01/19 05:00: White Blood Count 6.4, Red Blood Count 3.46L, Hemoglobin 10.9L, Hematocrit 31.2L , Mean Corpuscular Volume 90, Mean Corpuscular Hemoglobin 31.4H, Mean Corpuscular Hemoglobin Concent 34.9, Red Cell Distribution Width 12.5, Platelet Count 199, Mean Platelet Volume 5.8L, Neutrophils (%) (Auto) 40.5L, Lymphocytes (%) (Auto) 37.0, Monocytes (%) (Auto) 12.9H, Eosinophils (%) (Auto) 7.4H, Basophils (%) (Auto) 2.2H, Sodium Level 143, Potassium Level 3.5, Chloride Level 109H, Carbon Dioxide Level 25, Anion Gap 9, Blood Urea Nitrogen 10, Creatinine 0.9, Estimat Glomerular Filtration Rate , Glucose Level 89, Uric Acid 3.8, Calcium Level 7.8L, Phosphorus Level 2.6, Magnesium Level 1.8, Total Bilirubin 0.2, Aspartate Amino Transf (AST/SGOT) 16, Alanine Aminotransferase ( ALT/SGPT) 17, Alkaline Phosphatase 60, Total Protein 6.4, Albumin 2.7L, Globulin 3.7, Albumin/Globulin Ratio 0.7L Height (Feet): 5 Height (Inches): 0.00 Weight (Pounds): 111 General Appearance: lethargic EENT: normal ENT inspection Neck: normal alignment Cardiovascular: normal peripheral pulses, normal rate, regular rhythm Respiratory/Chest: chest wall non-tender, lungs clear, normal breath sounds Abdomen: normal bowel sounds, non tender, soft Extremities: normal inspection Edema: no edema noted Arm (L), no edema noted Arm (R), no edema noted Leg (L), no edema noted Leg (R), no edema noted Pedal (L), no edema noted Pedal (R), no edema noted Generalized Neurologic: motor weakness Skin: normal pigmentation, warm/dry Miguel Loyd DO Oct 01, 2019 14:28
[2019-10-01] MEDS: traMADol 50mg tab ORAL PRN (15:38)
[2019-10-01 16:00] VITALS: BP 106/57
--- NOTE | 2019-10-01 16:59 | NUR ---
CONTROL ENGINEER NOTES PT ACCEPTED TO [facility]. NURSE TO CALL REPORT TO [phone]. ONCE REPORT IS GIVEN THE NURSE WILL GIVE THE ROOM. [facility] TO TRANSPORT PT WITH ETA 1900. PT IS IN AGREEMENT WITH DEP AT THIS TIME.
--- NOTE | 2019-10-01 17:25 | Cardiology Report ---
APPROVED REPORT EKG Measurement Heart [id number] Sinus rhythm with 1st degree AV block Low voltage QRS Possible Lateral infarct, age undetermined Abnormal ECG
--- NOTE | 2019-10-01 18:49 | NUR ---
NURSE NOTES: Received discharge order for patient to [facility]. patient and sister aware. report given to BOBBI shuttle preparation supervisor in [facility]. picl time time will be at 1900.
--- NOTE | 2019-10-01 19:23 | NUR ---
HAND-OFF: Report given to Nancy Hunter. Still awaitintg for transport to [facility] patient.
--- NOTE | 2019-10-01 19:28 | NUR ---
NURSE NOTES: Pt received from DILLON Olivarez alert and oriented x4 with no acute s/s of distress noted. IV site asymptomatic and patent. Bed in lowest position, bed alarm on. Call light and belongings within reach.
[2019-10-01 20:00] VITALS: BP 116/86
--- NOTE | 2019-10-01 20:10 | NUR ---
NURSE NOTES: Pt picked up by ambulance in stable condition with no acute s/s of distress noted. Belongings with patient upon discharge. No wounds note dupon discharge. IV site d/lola and wristband removed as per protocol.
--- NOTE | 2019-10-02 09:27 | Discharge Summary ---
Discharge Summary Discharge Summary _ DATE OF ADMISSION: 09/28/2019 DATE OF DISCHARGE: 10/01/1992 DISCHARGED BY: Dr. Loyd REASON FOR ADMISSION: 78 years old female with past medical history of hypertension, hyperlipidemia, chronic back pain, presented to emergency room for evaluation after she sustained a mechanical fall. Patient apparently was going down the stairs and missed the last 3 stairs, falling forward onto her knees , right hip and hitting her head and face on the ground. She reported diffuse back pain, bilateral knee pain and right hip pain. In addition, patient reported mid face pain and swelling of the upper lid. She believed that she bit through her upper lip. Bleeding was controlled at home by applying pressure. Patient did not recall the time of the last tetanus shot. She denied loss of consciousness. She denies headache. She denied change in vision. She denied nausea and vomiting. She denied chest pain and shortness of breath. She denied any new weakness or fatigue. No fever or chills. No abdominal pain. On evaluation vital signs were stable. Physical examination revealed 3 cm linear and very superficial laceration in the upper lip. No mid face instability no malocclusion. CT scan of cervical, thoracic and lumbar spine revealed no acute fracture or misalignment. CT of the head revealed no acute intracranial hemorrhage or calvarial fracture. CT of the facial bones revealed no acute facial fracture. Right hip x-ray revealed no acute fracture or dislocation. X-ray of the left and right knee revealed no acute fracture or misalignment. Laboratory work-up revealed no leukocytosis, stable hemoglobin and hematocrit. Sodium 133, potassium 2.2. BUN 19, creatinine 1.1. Glucose 85. Urinalysis revealed +3 leukocyte esterase , pyuria and many bacteria. EKG revealed sinus rhythm with a first-degree AV block. No acute ischemic changes . Patient received a tetanus shot in emergency department. Patient subsequently admitted to telemetry floor for further management. CONSULTANTS: monitor tech Dr. Dewitt [facility] COURSE: Patient admitted to telemetry floor. Security Alarm Installer followed. Potassium was replaced. Prior to discharge 3.5. Renal parameters and electrolytes were closely monitored. Phosphorus and magnesium supplemented as needed. Patient initially received IV hydration. Prior to discharge BUN from 19 down to 10 , creatinine from 1.1 down to 0.9. ] Patient started on empiric antibiotic for UTI . Urine culture revealed mixed gram-positive organisms. Antihypertensive regimen was optimized. Blood pressure was managed with calcium channel jacobo and beta-jacobo. Statin continued. Lipid panel was stable. Telemetry showed sinus rhythm, no acute ischemic changes. Supplemental oxygen was on board as needed to keep pulse oximetry above 92% along with the nebulizing treatment. Pulse oximetry remained stable on room air. No evidence of COPD exacerbation. TSH within normal limits. Pain management was addressed as needed. Patient was working with physical therapist. Bowel regimen instituted. Hemoglobin and hematocrit were closely monitored with goal to keep hemoglobin above 7. Prior to discharge hemoglobin 10.9, hematocrit 31.2. Nutritional consult was requested . Patient had a good oral intake.No need for supplements. Patient clinically stabilized and was ready for transfer to acute rehabilitation unit at [facility] for further rehabilitation. FINAL DIAGNOSES: Hypokalemia -resolved Hypertension Anemia COPD Status post fall Laceration of oral cavity DISCHARGE MEDICATIONS: List of medication was sent to the accepting facility. DISCHARGE INSTRUCTIONS: Patient was transferred to acute rehabilitation center at [facility] at [place] for further rehabilitation. I have been assigned to dictate discharge summary for this account. I was not involved in the patient's management. Beverley [place] NP Oct 02, 2019 09:27
== END 2019-10-01 20:05 | disposition short-term general hospital (02) | DRG 641 ==
LOC: EDBD 16:08 → EDSEX 16:08 → EMR 16:25 → 2E 18:04 → EDBEDREQ 19:52 → 2E 20:24
DX: E87.6 Hypokalemia (principal); E46 Unspecified protein-calorie malnutrition; I10 Essential (primary) hypertension; R53.1 Weakness; E78.5 Hyperlipidemia, unspecified; G89.29 Other chronic pain; M54.9 Dorsalgia, unspecified; J44.9 Chronic obstructive pulmonary disease, unspecified; S01.512A Laceration without foreign body of oral cavity, initial encounter; W10.9XXA Fall (on) (from) unspecified stairs and steps, initial encounter; D64.9 Anemia, unspecified; M25.562 Pain in left knee; M25.561 Pain in right knee; M25.551 Pain in right hip; I44.0 Atrioventricular block, first degree
CPT/HCPCS: 36415; 70450; 70486; 72125; 72128; 72131; 80048; 80053; 80061; 81001; 82550; 82977; 83036; 83735; 83880; 84100; 84439; 84443; 84481; 84550; 85025; 85610; 86140; 87086; 93005; 94664; 96365; 99291; C9399; J8499